=== PATIENT | male | born 1990 | race African-American/Black ===

== ENCOUNTER 2016-09-20 19:07 | Inpatient (IN) | payer SELFPAY ==
[~2016-09-20] VITALS: Ht 175.3 cm; Wt 99.8 kg
[~2016-09-20 19:07] MED LIST: HYDR-971 PO; ONDA4TAB7 PO
[2016-09-20] MEDS ORDERED: LORazepam 2 MG/ML VIAL IM ONE (19:30)
[2016-09-20] MEDS ORDERED: HALOPERIDOL LACT 5 MG/ML VIAL. IM ONE (19:30)
[2016-09-20] MEDS ORDERED: 0.9 % SODIUM CHLORIDE 10 ML DISP.SYRIN. IV PRN (19:30)
[2016-09-20] MEDS ORDERED: THIAMINE 200 MG/2 ML VIAL. IV ONE (19:31)
[2016-09-20] MEDS ORDERED: IV NORMAL SALINE 1,000ML 1,000 ML ONE (19:31)
[2016-09-20] MEDS ORDERED: MVI, ADULT NO.4 WITH VIT K 10 ML VIAL IV ONE (19:32)
[2016-09-20] MEDS ORDERED: FOLIC ACID 5 MG/ML SYRINGE for ER IV ONE (19:32)
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
--- NOTE | 2016-09-20 19:43 | EKG ---
[address] [address] Test Date: 2016-09-20 Test Time: 19:42:52 Pat Name: ELIANE PAUL Department: Room: Gender: M Ordnance Engineer: JOSE ALFREDO : 1990 Requested By: MINERVA NOEL Order Number: [id number] Reading MD: Quoc Pritchard Measurements Intervals [place] Rate: 93 P: 63 W[place]: 144 QRS: 59 QRSD: 80 T: 41 QT: 334 QTc: 418 Interpretive Statements SINUS RHYTHM Electronically Signed On 09-29-2016 8:46:37 CDT by Quoc Pritchard
[2016-09-20] MEDS ORDERED: MVI, ADULT NO.4 WITH VIT K 10 ML, FOLIC ACID SYRINGE for ER 1 MG, THIAMINE 100 MG in IV... IV SCH ×4 (19:45)
[2016-09-20] MEDS ORDERED: FAMOTIDINE 20 MG/2 ML VIAL IVP ONE (19:45)
[2016-09-20 20:15] LABS: BASO # 0.1 x10^3/uL (0.0-0.2); BASO % 1 % (0-3); EOS # 0.3 x10^3/uL (0.0-0.7); EOS % 5 % (0-3); HEMOGLOBIN 14.4 g/dL (13.0-17.5); LYMPH # 2.6 x10^3/uL (1.0-4.8); LYMPH % 42 % (24-48); MEAN CORPUSCULAR HEMOGLOBIN 31 pg (25-35); MEAN CORPUSCULAR HGB CONC 34 g/dL (31-37); MEAN CORPUSCULAR VOLUME 93 fL (79-100); MONO # 0.3 x10^3/uL (0.0-1.1); MONO % 5 % (0-9); NEUT % 47 % (31-73); PLATELET COUNT 159 x10^3/uL (140-400); RED BLOOD COUNT 4.64 x10^6/uL (4.30-5.70); RED CELL DISTRIBUTION WIDTH 15.1 % (11.5-14.5); WHITE BLOOD COUNT 6.3 x10^3/uL (4.0-11.0)
[2016-09-20 20:26] LABS: ACETAMIN 2.4 mcg/mL (10-30); ETHANOL 288 mg/dL (0-10); SALIC 5.2 mg/dL (2.8-20.0)
[2016-09-20 20:27] LABS: ALBUMIN 4.1 g/dL (3.4-5.0); CALCIUM 8.7 mg/dL (8.5-10.1); CREATININE 0.9 mg/dL (0.7-1.3); DIRECT BILIRUBIN 0.2 mg/dL (0.0-0.2); GFR 122.5; MAGNESIUM 2.3 mg/dL (1.8-2.4); POTASSIUM 3.7 mmol/L (3.5-5.1); TOTAL BILIRUBIN 0.3 mg/dL (0.2-1.0); TOTAL PROTEIN 8.1 g/dL (6.4-8.2)
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
--- NOTE | 2016-09-20 23:02 | RAD ---
EXAM: LEFT LOWER EXTREMITY VENOUS DOPPLER. HISTORY: Left lower extremity pain/swelling. FINDINGS: Grayscale and doppler analysis of the left lower extremity deep venous system was performed with graded compression and augmentation. The common femoral, greater saphenous, deep femoral, superficial femoral, popliteal, and calf veins were assessed. There is no evidence of deep venous thrombosis. There are 2 prominent lymph nodes in the left inguinal region that measure up to 2.8 x 0.9 centimeters. There prominent fatty bertha and appear benign. Correlate for left lower extremity inflammation. IMPRESSION: No evidence of deep venous thrombosis.. Electronically signed by: Lavelle You (September 20, 2016 23:01:11)
[2016-09-20] MEDS ORDERED: LORazepam 2 MG/ML VIAL IV PRN ×2 (23:30)
--- NOTE | 2016-09-20 23:48 | NUR ---
The patient, ELIANE PAUL, 26 y/o, M admitted by BEKAH GUAMAN DO, was given written information regarding hospital policies, unit procedures and contact persons. Valuables were checked and logged. Call light placed at bedside. Will continue to monitor.
[2016-09-20 23:58] VITALS: BP 98/52
[2016-09-21] MEDS ORDERED: LORazepam 2 MG/ML VIAL IV PRN (00:15)
--- NOTE | 2016-09-21 00:29 | NUR ---
The patient, ELIANE PAUL, 26 y/o, M admitted by BEKAH UGAMAN DO, was given written information regarding hospital policies, unit procedures and contact persons. Patient was brought by girlfriend to the ER because patient had 6 seizures today. Patient drinks every day per girlfriend at least 5 or 6 beers. Patient assessed, very obtunded due to medication that the ER gave prior to arrival. Will continue to monitor. Bed alarm set. Valuables were checked and left with patient.
--- NOTE | 2016-09-21 00:31 | NUR ---
CONSULT: Called Dr. Steel regarding consult. New orders noted.
--- NOTE | 2016-09-21 00:55 | ACF ---
Admission Criteria Forms SUBSTANCE ABUSE Clinical Indications for Admission to Inpatient Care (Place 'X' for any and all applicable criteria): Admission is indicated due to ANY ONE of the following(1)(2)(3)(4)(5): [ ]I. Delirium due to alcohol or sedative A withdrawal B ( Also use Delirium Criteria as appropriate)1,6,7 [ ]II. Alcohol or sedative withdrawal with high-risk indicator as manifested by ALL of the following1,3,6,7 [ ]a) Signs of withdrawal as indicated by ANY ONE of the following: [ ]i) Heart rate greater than 100 beats per minute [ ]ii) Nausea or vomiting [ ]iii) Other physical signs of alcohol or sedative withdrawal [ ]iv) Tremor [ ](v) Increased perspiration [ ]b) Elevated risk due to a historical or comorbid factor as indicated by ANY ONE of the following: [ ]i) History of delirium due to alcohol or sedative withdrawal [ ]ii) History of repetitive seizures due to alcohol or sedative withdrawal C [ ]iii) Intrinsic seizure disorder (epilepsy) [ ]iv) [ ]v) Comorbid medical condition that can be dangerously destabilized by alcohol or sedative withdrawal (eg, severe cardiac disease) [ ]III. Severe alcohol or sedative withdrawal that is unmanageable at lower level of care, as manifested by ALL of the following1,3,6,7 [ ]a) Marked signs of withdrawal as indicated by ANY ONE of the following: [ ]i) Heart rate greater than 120 beats per minute [ ]ii) Vomiting [ ]iii) Grossly visible tremor [ ]iv) Profuse perspiration [ ]v) Temperature greater than 38.3 degrees C (101 degrees F) [ ]vi) Other marked physical signs of alcohol or sedative withdrawal [ ]b) Signs of withdrawal which require inpatient treatment as indicated by ANY ONE of the following: [ ]i) Inadequate response to pharmacotherapy in emergency department or other appropriate lower level of care [ ]ii) Lower level of care not feasible or appropriate (eg, unavailable or inappropriate to patient condition or treatment history) [ ]IV. Severely complicated opioid withdrawal that requires gifszw-eeg-[id number] care as manifested by ALL of the following 1,4,7,11 [ ]a) Vomiting or diarrhea due to opioid withdrawal [ ]b) Marked dehydration or electrolyte abnormality that cannot be corrected (to near normal) in an emergency department or other ambulatory setting (eg, serum K<2.5 mEq/L , serum Na <130 mEq/L [X ]V. Acute toxicity or instability from substance use requiring inpatient care (eg, altered mental status, respiratory depression) that has had inadequate response to, or is judged inappropriate for, treatment at lower level of care (eg, emergency department, observation care) [ ]. Other inpatient medical or psychiatric care is needed due to risk or comorbidity as indicated by ALL of the following(18): [ ]a) Treatment is needed because of patient risk due to ANY ONE of the following: [ ]i) Medical condition (eg, severe cardiac disease) that requires 24-hour monitoring and treatment due to danger of destabilization by alcohol or sedative withdrawal is present [ ]ii) Imminent danger to self is present due to ANY ONE of the following(19)(20)(21): [ ]1) Imminent risk for recurrence of Suicide attempt or act of serious Harm to self is present as indicated by ALL of the following: [ ]A. There has been very recent Suicide attempt or deliberate act of serious Harm to self. [ ]B. There has not been Sufficient relief of the factors that precipitated the attempt or act. [ ]2) Current plan for suicide or serious Harm to self is present. [ ]3) Command auditory hallucinations for suicide or serious Harm to self are present. [ ]4) Patient has persistent Thoughts of suicide or serious Harm to self that cannot be adequately monitored at lower level of care due to ANY ONE of the following[E]: [ ]A. Insufficient behavioral care is available to meet patient needs (such as required provider or lower level facility is not available). [ ]B. Patient characteristics such as high impulsivity or unreliability are present. [ ]C. Environment does not support recovery. [ ]D. Ready access to lethal means [ ]iii) Imminent danger to others is present due to ANY ONE of the following(19)(23)(24): [ ]1) Imminent risk for recurrence of attempt to seriously Harm another is present as indicated by ALL of the following: [ ]A. There has been very recent attempt to seriously Harm another. [ ]B. There has not been Sufficient relief of factors that precipitated the attempt or act. [ ]2) Current plan for homicide or serious Harm to another is present. [ ]3) Command auditory hallucinations or paranoid delusions contributing to risk for homicide or serious Harm to another are present. [ ]4) Patient has persistent thoughts of homicide or serious Harm to another that cannot be adequately monitored at lower level of care because of ANY ONE of the following[E]: [ ]A. Insufficient behavioral care is available to meet patient needs (such as required provider or lower level facility is not available). [ ]B. High impulsivity or unreliability is present. [ ]C. Environment does not support recovery. [ ]D. Ready access to lethal means [ ]iv) Severe dysfunction in daily living related to substance use disorder as indicated by ANY ONE of the following(33): [ ]a) Extreme deterioration in social interactions (eg , threatening behaviors with little or no provocation) [ ]b) Complete withdrawal from all social interactions [ ]c) Complete neglect of self-care with associated impairment in physical status [ ]d) Extreme disruption in vegetative function (eg, life-sustaining functions such as eating) [ ]e) Complete inability to maintain any appropriate aspect of personal responsibility in any adult roles (eg, occupational, parental ) [ ]v) Other emotional, behavioral, or cognitive symptoms of sufficient severity to preclude ability to engage in recovery without 24-hour monitoring and treatment are present. [ ]vi) Patient requires monitoring due to substance use in combination with medical, psychiatric, or environmental factors that prevent adequate management at lower level of care as indicated by ALL of the following: [ ]1) Significant substance use effects, medical conditions, or psychiatric comorbidities are present as indicated by ANY ONE of the following [ ]A. Substance toxicity or withdrawal requires medical monitoring. [ ]B. Medical comorbidity requires medical monitoring for destabilization due to alcohol or sedative withdrawal. [ ]C. Emotional, behavioral, or cognitive symptoms of sufficient severity to limit or preclude ability to engage in treatment are present. [ ]2) Conditions, barriers, or environmental factors preventing treatment at lower level of care are present as indicated by ANY ONE of the following: [ ]A. Psychiatric comorbidity or opposition to treatment requires 24-hour setting to ensure adherence with medical treatment or adequate motivating interventions. [ ]B. Severe behavioral problems (eg, escalating relapse behaviors, acute psychiatric or substance use crisis, inability to recognize signs and symptoms of relapse ) require 24-hour setting for relapse prevention.[F] [ ]C. Living environment outside of 24-hour setting prevents recovery (eg, abuse, victimization, patient inability to cope). [ ]b Treatment situation and needs are appropriate for inpatient level ( instead of using lower level of care) as indicated by ANY ONE of the following( 25)(26)(27): [ ]i) Patient is unwilling to participate voluntarily and requires treatment (eg, legal commitment) in involuntary unit.(23) [ ]ii) Voluntary treatment at lower level is not feasible (eg, lower level care unavailable or inappropriate for patient condition). [ ]iii) Physical restraint, seclusion, or other involuntary control is needed (eg, actively violent patient for whom treatment in an involuntary unit is deemed necessary in accord with applicable medical and legal criteria).(23) [ ]iv) Yphypp-rad-eztbi medical or nursing care to address symptoms and initiate interventions is required; specific need is identified. Extended stay beyond goal length of stay may be needed for: [ ]a) Onset of delirium [ ]b) Recurrent seizures [ ]c) Persistent severe alcohol or sedative withdrawal [ ]d) Persistent dangerous behavior The original [facility] content created by [employer] has been revised. The portions of the content which have been revised are identified through the use of italic text or in bold, and [facility] has neither reviewed nor approved the modified material. All other unmodified content is copyright [facility]. Please see references footnoted in the original [facility] [employer] edition 2016 Admission Criteria Met?: Yes KWASI JOSHI September 21, 2016 00:55
[2016-09-21 02:00] VITALS: BP 140/80
--- NOTE | 2016-09-21 02:38 | NUR ---
Nursing supervisor hand workers was notified by [facility] staff officer that the patient was wanting to leave the hospital. The nursing supervisor hand workers went and spoke to patient regarding his desire to leave the hospital immediately. Patient stated the following, "I'm trying to be nice but I'm leaving this hospital. So you can give me that AMA paper before I start pulling this shit off." Tactical Air Control Party Manager discussed risk and benefits of staying at the hospital. Patient informed that girlfriend stated she would not come back to hospital to pick him up. The patient replied, " She will do what I tell her to do." Patient continued by stating, " I'm not drunk anymore and you can't keep me here." No slurred or altered speech was noted through the entire patient conversation. He remained adamant that he was leaving. Patient agreed to wait for a few minutes while primary doctor was notified. Patient stood at bedside and changed into his clothes and shoes from home. No altered gait or swaying was noted while patient dressed himself. Patient also placed a phone call on his personal cell phone. The patient refused transport ,in a wheelchair, but agreed to wait with staff until his transportation arrived. Patients walked independently with a steady gait. No swaying or weaving noted as he exited the hospital unit. See patient chart for signed AMA paperwork.
[2016-09-21 02:47] LABS: BARBITURATES NEG (NEG); BENZODIAZEPINES NEG (NEG); CANNABINOIDS POS (NEG); COCAINE NEG (NEG); METHADONE NEG (NEG); OPIATES NEG (NEG); PHENCYCLIDINE NEG (NEG)
[2016-09-21 02:48] LABS: AMPHETAMINE/METHAMPHETAMINE NEG (NEG)
--- NOTE | 2016-09-21 02:50 | NUR ---
Nursing note: Patient woke up and demanded to go AMA, called Dr. Wright went over all risk with patient. Patient voiced understanding. Called a cab and am waiting for them to come at this time.
--- NOTE | 2016-09-21 02:59 | NUR ---
Nursing note: Cab came and picked up patient, walked patient to exit.
--- NOTE | 2016-09-21 08:40 | RAD ---
Indication seizure. Suspect aspiration pneumonia. A single view of the chest was obtained and is compared to a study 11/30/2006. The heart and pulmonary vessels appear normal. The lungs are clear. Bony structures appear grossly intact. IMPRESSION: Normal single view of the chest
--- NOTE | 2016-09-22 00:58 | PN ---
DATE: 09/21/2016 REASON FOR NOTE: Left AMA. BRIEF PROGRESS NOTE: I was called by the Emergency Room physician regarding admission for this 26-year-old male who had had several seizures and was intoxicated. The patient was to be admitted for alcohol detox and evaluation seizures. However, he woke up at 2:50 and demanded to leave AMA and he left. The nurses advised me that he left at 0300. BEKAH GUAMAN DO DR: BRIGITTE/chio JOB#: [id number] / [id number]
== END 2016-09-21 02:59 | disposition left against medical advice (07) | DRG 101 ==
LOC: ER 19:07 → UNDOADMIN 21:52 → ICU 21:52 → UNDODISIN 09-21 02:59
PROVIDERS: ADMIT Family Medicine; ATTEND Family Medicine
DX: G40.909 Epilepsy, unspecified, not intractable, without status epilepticus (principal); F10.129 Alcohol abuse with intoxication, unspecified; G89.29 Other chronic pain; S00.03XA Contusion of scalp, initial encounter; W18.39XA Other fall on same level, initial encounter; F12.90 Cannabis use, unspecified, uncomplicated; Z53.21 Procedure and treatment not carried out due to patient leaving prior to being seen by health care provider; M79.669 Pain in unspecified lower leg; R51 Headache; Y93.89 Activity, other specified; Y92.89 Other specified places as the place of occurrence of the external cause; Y99.8 Other external cause status; Z59.9 Problem related to housing and economic circumstances, unspecified; Z79.01 Long term (current) use of anticoagulants
CPT/HCPCS: 36415; 70450; 71010; 80048; 80076; 83735; 85027; 87641; 93005; 93971; 96365; 96372; 96375; G0480; G0481; G6038; J1630; J2060; S0028; 80196; 99285-25; J7030

== ENCOUNTER 2016-12-05 10:46 | Emergency (ER) | payer SELFPAY ==
[~2016-12-05] VITALS: Ht 175.3 cm; Wt 93.0 kg
[2016-12-05 11:35] VITALS: BP 160/97
[2016-12-05 11:40] LABS: BASO # 0.1 x10^3/uL (0.0-0.2); BASO % 1 % (0-3); EOS # 0.4 x10^3/uL (0.0-0.7); EOS % 5 % (0-3); HEMATOCRIT 45.1 % (39.0-53.0); HEMOGLOBIN 15.1 g/dL (13.0-17.5); LYMPH # 1.6 x10^3/uL (1.0-4.8); LYMPH % 21 % (24-48); MEAN CORPUSCULAR HEMOGLOBIN 32 pg (25-35); MEAN CORPUSCULAR HGB CONC 33 g/dL (31-37); MEAN CORPUSCULAR VOLUME 95 fL (79-100); MONO # 0.6 x10^3/uL (0.0-1.1); MONO % 8 % (0-9); NEUT # 4.9 x10^3uL (1.8-7.7); NEUT % 66 % (31-73); PLATELET COUNT 103 x10^3/uL (140-400); RED BLOOD COUNT 4.73 x10^6/uL (4.30-5.70); RED CELL DISTRIBUTION WIDTH 14.2 % (11.5-14.5); WHITE BLOOD COUNT 7.5 x10^3/uL (4.0-11.0)
[2016-12-05] MEDS ORDERED: IV NORMAL SALINE 1,000ML 1,000 ML IV ONE (11:45)
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
[2016-12-05 12:24] LABS: CALCIUM 9.3 mg/dL (8.5-10.1); CREATININE 0.8 mg/dL (0.7-1.3); DIRECT BILIRUBIN 0.2 mg/dL (0.0-0.2); GFR 140.3; MAGNESIUM 1.6 mg/dL (1.8-2.4); POTASSIUM 3.7 mmol/L (3.5-5.1); TOTAL BILIRUBIN 0.6 mg/dL (0.2-1.0); TOTAL PROTEIN 7.9 g/dL (6.4-8.2)
--- NOTE | 2016-12-05 12:37 | EKG ---
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
[2016-12-05 12:44] LABS: BARBITURATES NEG (NEG); BENZODIAZEPINES NEG (NEG); CANNABINOIDS POS (NEG); COCAINE NEG (NEG); METHADONE NEG (NEG); OPIATES NEG (NEG); PHENCYCLIDINE NEG (NEG)
[2016-12-05 12:45] LABS: AMPHETAMINE/METHAMPHETAMINE NEG (NEG)
[2016-12-05 12:52] LABS: BILIRUBIN,URINE NEG (NEG); CLARITY,URINE CLEAR; COLOR,URINE AMBER; GLUCOSE,URINE NEG (NEG)
[2016-12-05 12:53] LABS: BACTERIA,URINE 0 /HPF (0-FEW); NITRITE,URINE NEG (NEG); RBC,URINE OCC /HPF (0-2); SQUAMOUS EPITHELIAL CELL,UR OCC /LPF; UROBILINOGEN,URINE 0.2 mg/dL (0.2 mg/dL); WBC,URINE 0 /HPF (0-4)
== END 2016-12-05 13:20 | disposition home or self-care (01) ==
LOC: ER 10:46
DX: E86.0 Dehydration (principal); R55 Syncope and collapse; Z86.718 Personal history of other venous thrombosis and embolism; F17.210 Nicotine dependence, cigarettes, uncomplicated; F12.10 Cannabis abuse, uncomplicated
CPT/HCPCS: 36415; 80048; 80076; 80305; 81001; 83690; 83735; 83880; 84484; 85027; 93005; 96360; 99285; G0480; G0481; J7030